=== PATIENT | male | born 1950 | race Caucasian/White ===

== ENCOUNTER → 2020-12-27 | Day surgery (SDC) | payer MEDICARE, OTHER ==
[~2020-12-27] VITALS: Ht 175.3 cm; Wt 66.3 kg
[~2020-12-27] MED LIST: ASPIR 8181 MG PO; ASPIRIN CHEWABL81 MG PO; ASPIRIN325 MG PO; METFORMIN HCL500 MG PO; NICORETTE4 MG PO; PERCOCET 5-3251 EACH PO; TOPROL XL 25MG25 MG PO; ZESTRIL5 MG PO
[2020-12-27 07:59] LABS: HCT 48.5 % (42.0-52.0); HGB 16.7 g/dl (13.2-18.0); MCHC 34.4 g/dL (32.0-36.0); MCV 84.3 fL (78.0-100.0); MPV 8.9 fL (6.0-9.5); RBC 5.75 M/uL (4.70-6.00); RDW 13.9 % (11.5-14.0); WBC 9.9 K/uL (4.0-10.5)
[2020-12-27 08:21] LABS: BILIRUBIN - TOTAL 0.4 mg/dL (0.2-1.0); BUN/CREAT RATIO (CALC) 19.3 RATIO; CREATININE 0.83 mg/dL (0.67-1.17); GLOBULIN (CALCULATION) 3.8 g/dL; POTASSIUM 4.5 mmol/L (3.5-5.1); TOTAL PROTEIN 7.8 g/dL (6.4-8.2)
== END | disposition home or self-care (01) ==
LOC: FAS 07:26
PROVIDERS: Surgery
DX: K58.9 Irritable bowel syndrome, unspecified (principal); R63.4 Abnormal weight loss; N40.0 Benign prostatic hyperplasia without lower urinary tract symptoms; I25.10 Atherosclerotic heart disease of native coronary artery without angina pectoris; E11.65 Type 2 diabetes mellitus with hyperglycemia; M19.90 Unspecified osteoarthritis, unspecified site; I10 Essential (primary) hypertension; E78.5 Hyperlipidemia, unspecified; F41.9 Anxiety disorder, unspecified; F17.290 Nicotine dependence, other tobacco product, uncomplicated; Z95.1 Presence of aortocoronary bypass graft; Z68.21 Body mass index [BMI] 21.0-21.9, adult; Z91.041 Radiographic dye allergy status; Z79.82 Long term (current) use of aspirin; Z79.84 Long term (current) use of oral hypoglycemic drugs; Z79.899 Other long term (current) drug therapy
CPT/HCPCS: 36415; 76705; 80053; J1610; J2704; J7120